=== PATIENT | female | born 1950 | race Caucasian/White ===

== ENCOUNTER 2021-07-07 18:05 | Emergency (ER) | payer MEDICARE, OTHER ==
[2021-07-07 21:10] LABS: BASOPHIL 0.4 % (0-2); EOSINOPHIL 2.1 % (0-7); HCT 37.3 % (37.0-47.0); HGB 12.1 g/dl (12.5-16.0); LYMPHOCYTE 10.1 % (15-48); MCH 31.1 pg (25.0-31.0); MCHC 32.4 g/dL (32.0-36.0); MCV 95.9 fL (78.0-100.0); MONOCYTE 6.8 % (0-12); MPV 10.5 fL (6.0-9.5); NRBC 0; PLT 369 K/uL (150-400); RBC 3.89 M/uL (4.20-5.40)
[2021-07-07 21:23] LABS: ALBUMIN 2.9 g/dL (3.4-5.0); BILIRUBIN - TOTAL 0.4 mg/dL (0.2-1.0); BUN/CREAT RATIO (CALC) 18.2 RATIO; CREATININE 1.21 mg/dL (0.51-0.95); GLOBULIN (CALCULATION) 4.2 g/dL; MAGNESIUM 1.7 mg/dL (1.8-2.4); POTASSIUM 4.7 mmol/L (3.5-5.1); TOTAL PROTEIN 7.1 g/dL (6.4-8.2)
== END 2021-07-08 01:00 | disposition home or self-care (01) ==
LOC: FER 18:05
PROVIDERS: Emergency Medicine
DX: E11.649 Type 2 diabetes mellitus with hypoglycemia without coma (principal); E78.5 Hyperlipidemia, unspecified; I10 Essential (primary) hypertension; J44.9 Chronic obstructive pulmonary disease, unspecified; F17.210 Nicotine dependence, cigarettes, uncomplicated; Z79.84 Long term (current) use of oral hypoglycemic drugs
CPT/HCPCS: 36415; 72131; 80053; 83735; 85025; 93005

== ENCOUNTER 2021-08-20 11:42 | Emergency (ER) | payer MEDICARE, OTHER ==
[2021-08-20 12:17] LABS: BASOPHIL 0.7 % (0-2); EOSINOPHIL 2.1 % (0-7); HCT 38.7 % (37.0-47.0); HGB 12.3 g/dl (12.5-16.0); LYMPHOCYTE 12.3 % (15-48); MCH 31.2 pg (25.0-31.0); MCHC 31.8 g/dL (32.0-36.0); MCV 98.2 fL (78.0-100.0); MONOCYTE 6.8 % (0-12); MPV 10.2 fL (6.0-9.5); NEUTROPHIL 77.5 % (41-80); NRBC 0; PLT 365 K/uL (150-400); RBC 3.94 M/uL (4.20-5.40); RDW 13.8 % (11.5-14.0); WBC 12.4 K/uL (4.0-10.5)
[2021-08-20 13:10] LABS: INR 1.02 (0.9-1.2); PROTHROMBIN TIME 12.8 SECONDS (11.8-13.4); PTT 33.1 SECONDS (24.4-34.7)
[2021-08-20 13:20] LABS: ALBUMIN 2.9 g/dL (3.4-5.0); BILIRUBIN - TOTAL 0.3 mg/dL (0.2-1.0); BUN/CREAT RATIO (CALC) 19.5 RATIO; CREATININE 1.64 mg/dL (0.51-0.95); GLOBULIN (CALCULATION) 4.2 g/dL; POTASSIUM 5.1 mmol/L (3.5-5.1); TOTAL PROTEIN 7.1 g/dL (6.4-8.2)
[2021-08-20 16:56] LABS: CORONAVIRUS 2019 SARS-COV-2 NEGATIVE (NEGATIVE); INFLUENZA A NAA NEGATIVE (NEGATIVE)
[2021-08-20] MEDS ORDERED: CEFPODOXIME PR200 MG PO (17:23)
[2021-08-20] MEDS ORDERED: AZITHROMYCIN250 MG PO (17:23)
== END 2021-08-20 17:53 | disposition home or self-care (01) ==
LOC: FER 11:42
PROVIDERS: Internal Medicine
DX: J18.9 Pneumonia, unspecified organism (principal); N17.9 Acute kidney failure, unspecified; I10 Essential (primary) hypertension; E11.9 Type 2 diabetes mellitus without complications; J44.9 Chronic obstructive pulmonary disease, unspecified; F17.210 Nicotine dependence, cigarettes, uncomplicated; Z20.822 Contact with and (suspected) exposure to COVID-19
CPT/HCPCS: 36415; 70450; 70551; 71045; 80053; 80061; 82550; 84145; 84484; 85025; 85610; 85730; 93005; J0696; J7120; U0002